=== PATIENT | male | born 1950 | race Caucasian/White ===

== ENCOUNTER → 2019-10-06 | Outpatient (CLI) | payer OTHER | END | disposition home or self-care (01) | LOC: RADPV 08:49 | PROVIDERS: ATTEND Orthopaedic Surgery | DX: I51.7 Cardiomegaly (principal); I25.9 Chronic ischemic heart disease, unspecified | CPT/HCPCS: 93306 ==

== ENCOUNTER → 2019-10-21 | Outpatient (CLI) | payer OTHER | END | disposition home or self-care (01) | LOC: RADPV 10:43 | PROVIDERS: ATTEND Orthopaedic Surgery | DX: I44.4 Left anterior fascicular block (principal); I21.9 Acute myocardial infarction, unspecified; I48.91 Unspecified atrial fibrillation | CPT/HCPCS: 93005 ==